=== PATIENT | male | born 1950 ===

== ENCOUNTER → 2017-09-23 | Outpatient (CLI) | payer OTHER | END | disposition home or self-care (01) | LOC: PPHC 14:00 → NUTRICION 14:00 | DX: I10 Essential (primary) hypertension (principal); E11.69 Type 2 diabetes mellitus with other specified complication; E03.8 Other specified hypothyroidism; E78.4 Other hyperlipidemia; J45.998 Other asthma ==

== ENCOUNTER 2025-05-29 12:26 | Outpatient (CLI) | payer OTHER | END 2025-05-29 12:28 | disposition home or self-care (01) | LOC: RAD 12:26 | PROVIDERS: ATTEND Physical Medicine & Rehabilitation | DX: M17.11 Unilateral primary osteoarthritis, right knee (principal) ==